=== PATIENT | female | born 1985 | race Caucasian/White ===

== ENCOUNTER 2017-09-03 15:00 | Emergency (ER) | payer OTHER ==
[~2017-09-03] VITALS: Ht 149.9 cm; Wt 52.3 kg
[~2017-09-03 15:00] MED LIST: PRILOSEC 20MG20 MG PO
[2017-09-03 15:05] VITALS: BP 116/81; TEMP 97.6
[2017-09-03 16:18] LABS: BASO % 0.7 % (0.0-2.0); EOS % 0.1 % (0-4.0); HEMATOCRIT 50.7 % (37.0-47.0); HEMOGLOBIN 17.6 g/dl (12.5-16.0); MEAN CELL VOLUME 85 fl (80.0-100.0); MEAN CORPUSCULAR HEMOGLOBIN 29 pg (27.0-31.0); MEAN CORPUSCULAR HGB CONC 35 g/dl (33.0-37.0); MEAN PLATELET VOLUME 10.1 fl (7.4-10.4); MONO % 2.9 % (1.7-9.3); PLATELET COUNT 334 K/mm3 (130-400); REDCELL DISTRIBUTION WIDTH-CV 11.6 % (11.5-14.5); WHITE BLOOD COUNT 10.7 K/mm3 (4.8-10.8)
[2017-09-03 16:19] LABS: BASO # 0.1 (0.0-0.2); LYMPH # 2.3 (1.2-3.4); MONO # 0.3 (0.1-0.6)
[2017-09-03 16:27] LABS: ADJUSTED CALCIUM 9.4 mg/dL (8.4-10.2); ALANINE AMINOTRANSFERASE 12 U/L (9-52); ALBUMIN 4.7 gm/dL (3.5-5.0); ALKALINE PHOSPHATASE 85 U/L (50-136); ANION GAP 15 mmol/L (7-16); BILIRUBIN,TOTAL 0.8 mg/dL (0.0-1.0); BLOOD UREA NITROGEN 12 mg/dL (7-17); CARBON DIOXIDE 24 mmol/L (22-30); CHLORIDE 103 mmol/L (98-107); CREATININE, serum 0.96 mg/dL (0.52-1.25); GLUCOSE 95 mg/dL (74-106); LIPASE 106 U/L (23-300); POTASSIUM 3.5 mmol/L (3.4-5.0); SODIUM 141 mmol/L (137-145); TOTAL PROTEIN 8.7 gm/dL (6.4-8.2)
[2017-09-03 16:28] LABS: C-REACTIVE PROTEIN < 0.5 mg/dL (0.0-0.9)
[2017-09-03 16:33] LABS: PH 5 (5-8); SQUAMOUS EPITHELIAL 20-50 /hpf; URINE BACTERIA None Seen /hpf; URINE BILIRUBIN Negative (NEGATIVE); URINE BLOOD 2+ (NEGATIVE); URINE COLOR Yellow; URINE GLUCOSE Negative (NEGATIVE); URINE KETONE Trace (NEGATIVE)
[2017-09-03 16:34] LABS: URINE APPEARANCE Cloudy
[2017-09-03 18:34] VITALS: PULSE 87
== END 2017-09-03 18:40 | disposition home or self-care (01) ==
LOC: COL.ER 15:00
PROVIDERS: Emergency Medicine
DX: R10.9 Unspecified abdominal pain (principal); R11.2 Nausea with vomiting, unspecified; K52.9 Noninfective gastroenteritis and colitis, unspecified
CPT/HCPCS: J2405; J7030